=== PATIENT | male | born 1980 | race Caucasian/White ===

== ENCOUNTER 2017-04-11 20:06 | Emergency (ER) | payer MEDICAID ==
[2017-04-11] MEDS ORDERED: Sodium Chloride 0.9% 1,000 ML IV ONE (20:25)
--- NOTE | 2017-04-11 20:38 | EDM.PDOC ---
ED HPI GENERAL MEDICAL PROBLEM - General Chief Complaint: Respiratory Problem Stated Complaint: AMBULANCE Time Seen by Provider: 04/11/17 20:35 Source of Information: Reports: Patient History Limitations: Reports: No Limitations - History of Present Illness INITIAL COMMENTS - FREE TEXT/NARRATIVE: This 36 yo male patient reports to the ED by [facility] due to feeling lightheaded and like he was going to pass out. The patient reports he drank some extra energy drinks today. The patient reports no drug or ETOH use today. The patient reports he had a history of a Stroke a "couple of years ago", but does not know what the stroke effected. Onset: Today Duration: Minutes:, Constant Location: Reports: Generalized Quality: Reports: Dull Severity: Moderate Improves with: Reports: None Worsens with: Reports: None Associated Symptoms: Reports: No Other Symptoms - Related Data Allergies Allergy/AdvReac Type Severity Reaction Status Date / Time amoxicillin Allergy Cannot Verified 09/05/15 22:25 Remember aspirin Allergy Hives Verified 09/05/15 22:25 Penicillins Allergy Anaphylactic Verified 09/05/15 22:25 Shock venom-honey bee Allergy Anaphylactic Verified 09/05/15 22:25 [bee venom (honey bee)] Shock Home Meds: Home Meds Clopidogrel Bisulfate [Clopidogrel] 75 mg PO DAILY 09/06/15 [History] DULoxetine [Cymbalta] 30 mg PO ASDIRECTED 09/06/15 [History] Gabapentin [Gabapentin] 300 mg PO ASDIRECTED 09/06/15 [History] oxyCODONE HCl/Acetaminophen [oxyCODONE-Acetaminophen 5-325] 1 tab PO Q6H PRN 04/15 [History] Amitriptyline [Elavil] 1 tab PO BEDTIME 12/27/15 [History] Cyclobenzaprine [Flexeril] 1 tab PO Q8HR PRN 12/27/15 [History] Past Medical History Other Musculoskeletal History: hemiparesis of left side Neurological History: Reports: CVA Other Neuro History: hemiparesis of left side, peripheral neuropathy. jack HURTADO has had stroke in the past Psychiatric History: Reports: Addiction Social & Family History - Family History Family Medical History: Noncontributory - Tobacco Use Smoking Status *Q: Current Every Day Smoker Years of Tobacco use: 16 Packs/Tins Daily: 1 Used Tobacco, but Quit: No Second Hand Smoke Exposure: Yes - Alcohol Use Days Per Week of Alcohol Use: 1 Number of Drinks Per Day: 5 Total Drinks Per Week: 5 - Recreational Drug Use Recreational Drug Use: No ED ROS GENERAL - Review of Systems Review Of Systems: ROS reveals no pertinent complaints other than HPI. ED EXAM, GENERAL - Physical Exam Exam: See Below Exam Limited By: No Limitations General Appearance: Alert, WD/WN, Moderate Distress, Thin Eye Exam: Bilateral Eye: EOMI, Normal Inspection, PERRL Ears: Normal External Exam, Normal Canal, Hearing Grossly Normal, Normal TMs Nose: Normal Inspection, Normal Mucosa, No Blood Throat/Mouth: Normal Inspection, Normal Lips, Normal Teeth, Normal Gums, Normal Oropharynx, Normal Voice, No Airway Compromise Head: Atraumatic, Normocephalic Neck: Normal Inspection, Supple, Non-Tender, Full Range of Motion Respiratory/Chest: No Respiratory Distress, Lungs Clear, Normal Breath Sounds, No Accessory Muscle Use, Chest Non-Tender Cardiovascular: Normal Peripheral Pulses, Regular Rate, Rhythm, No Edema, No Gallop, No JVD, No Murmur, No Rub (Male) Exam: Deferred Rectal (Males) Exam: Deferred Back Exam: Normal Inspection, Full Range of Motion, NT Extremities: Normal Inspection, Normal Range of Motion, Non-Tender, Normal Capillary Refill, No Pedal Edema Neurological: Alert, Oriented, CN II-XII Intact, Normal Cognition, Normal Gait, Normal Reflexes, No Motor/Sensory Deficits Psychiatric: Anxious Skin Exam: Warm, Dry, Intact, Normal Color, No Rash Lymphatic: No Adenopathy Course - Orders/Labs/Meds Orders: Active Orders 24 hr Category Date Time Status EKG Documentation Completion [RC] STAT Care 04/11/17 20:25 Active LORazepam [Ativan] Med 04/11/17 21:28 Once 0.5 mg PO ONETIME ONE Labs: Laboratory Tests 04/11/17 04/11/17 04/11/17 Range/Units 20:15 20:15 20:25 WBC 10.2 H (5.0-10.0) 10^3/uL RBC 4.50 L (4.6-6.2) 10^6/uL Hgb 15.1 (14.0-18.0) g/dL Hct 42.7 (40.0-54.0) % MCV 94.9 (80-100) fL MCH 33.6 (27.0-34.0) pg MCHC 35.4 H (33.0-35.0) g/dL Plt Count 273 (150-450) 10^3/uL Neut % (Auto) 66.5 (42.2-75.2) % Lymph % (Auto) 22.7 (20.5-50.1) % [place] % (Auto) 8.3 H (2-8) % Eos % (Auto) 2.3 (1.0-3.0) % Baso % (Auto) 0.2 (0.0-1.0) % Sodium 141 (135-145) mmol/L Potassium 3.0 L (3.6-5.0) mmol/L Chloride 107 (101-111) mmol/L Carbon Dioxide 23.0 (21.0-31.0) mmol/L Anion Gap 14.0 BUN 9 (7-18) mg/dL Creatinine 0.9 (0.6-1.3) mg/dL Est Cr Clr Drug Dosing TNP Estimated GFR (MDRD) > 60 BUN/Creatinine Ratio 10.00 Glucose 106 H (74-105) mg/dL Calcium 9.7 (8.4-10.2) mg/dl Total Bilirubin 0.4 (0.2-1.0) mg/dL AST 22 (10-42) IU/L ALT 24 (10-60) IU/L Alkaline Phosphatase 45 (42-121) IU/L Troponin I < 0.02 (0.00-0.02) ng/ml Total Protein 7.1 (6.7-8.2) g/dl Albumin 4.4 (3.2-5.5) g/dl Globulin 2.7 Albumin/Globulin Ratio 1.63 Urine Opiates Screen Negative (NEGATIVE) Ur Oxycodone Screen Negative (NEGATIVE) Urine Methadone Screen Negative (NEGATIVE) Ur Barbiturates Screen Negative (NEGATIVE) U Tricyclic Antidepress Negative (NEGATIVE) Ur Phencyclidine Scrn Negative (NEGATIVE) Ur Amphetamine Screen Negative (NEGATIVE) U Methamphetamines Scrn Positive H (NEGATIVE) Urine MDMA Screen Negative (NEGATIVE) U Benzodiazepines Scrn Negative (NEGATIVE) Urine Cocaine Screen Negative (NEGATIVE) U Marijuana (THC) Screen Negative (NEGATIVE) Meds: Medications Discontinued Medications Generic Name Dose Route Start Last Admin Trade Name Freq PRN Reason Stop Dose Admin Sodium Chloride 1,000 mls @ 999 mls/hr 04/11/17 20:25 Normal Saline IV 04/11/17 21:25 .BOLUS ONE Departure - Departure Time of Disposition: 21:28 Disposition: Home, Self-Care 01 Condition: fair Clinical Impression: Caffeine use Nicotine dependence Qualifiers: Nicotine product type: cigarettes Substance use status: uncomplicated Qualified Code(s): F17.210 - Nicotine dependence, cigarettes, uncomplicated - Discharge Information Forms: ED Department Discharge Care Plan Goals: The patient was advised of the examination, EKG, lab and x-ray results during the visit. The patient was given a liter of IV fluids and an oral dose of Ativan. The patient was advised to avoid caffeine and nicotine use. If the patient has any additional symptoms or concerns, the patient should follow-up with his primary care facility or return to the emergency department. - My Orders Last 24 Hours: My Active Orders 04/11/17 20:25 EKG Documentation Completion [RC] STAT 04/11/17 21:28 LORazepam [Ativan] 0.5 mg PO ONETIME ONE - Assessment/Plan Last 24 Hours: My Active Orders 04/11/17 20:25 EKG Documentation Completion [RC] STAT 04/11/17 21:28 LORazepam [Ativan] 0.5 mg PO ONETIME ONE
[2017-04-11 20:44] LABS: CHLORIDE,CL 107 mmol/L (101-111); SODIUM,NA 141 mmol/L (135-145)
[2017-04-11] MEDS ORDERED: LORazepam 0.5 MG Tab PO ONE (21:28)
[2017-04-12 03:32] VITALS: BP 124/82
--- NOTE | 2017-05-03 09:10 | EKG ---
04/11/2017- TORSTEN PARKINSON - This is a standard 12-lead EKG showing normal sinus rhythm with a ventricular rate 97 beats per minute. Normal P axis, normal AL interval, QRS duration. No significant ST-T changes. [facility] /[id number]
== END 2017-04-11 21:35 | disposition home or self-care (01) ==
LOC: DL.ED 20:06
DX: F15.90 Other stimulant use, unspecified, uncomplicated (principal); F17.210 Nicotine dependence, cigarettes, uncomplicated; Z88.1 Allergy status to other antibiotic agents; Z88.0 Allergy status to penicillin; Z88.6 Allergy status to analgesic agent; Z91.030 Bee allergy status; Z79.899 Other long term (current) drug therapy; Z86.73 Personal history of transient ischemic attack (TIA), and cerebral infarction without residual deficits
CPT/HCPCS: 36415; 71010; 80053; 80305; 84484; 85025; 93005; 96365; 99284; A9270; J7030

== ENCOUNTER 2019-02-07 15:47 | Emergency (ER) | payer MEDICAID ==
[2019-02-07 15:53] VITALS: BP 139/90
[2019-02-07] MEDS ORDERED: Sodium Chloride 0.9% 10 ML Syringe FLUSH PRN (15:54)
--- NOTE | 2019-02-07 15:56 | EDM.PDOC ---
ED HPI GENERAL MEDICAL PROBLEM - General Chief Complaint: Chest Pain Stated Complaint: bad chest pain ,dizzy [id number] Time Seen by Provider: 02/07/19 15:55 Source of Information: Reports: Patient History Limitations: Reports: No Limitations - History of Present Illness INITIAL COMMENTS - FREE TEXT/NARRATIVE: Patient comes emergency department today with complaints of chest pain. He points to his xiphoid process and epigastric area when he has explaining his chest pain. Over the past 2-3 days he has had an unrelenting constant stabbing pain in his epigastric region. The pain does not radiate anywhere. He has tried Tums and Pepto-Bismol without any change. No other pain in his abdomen. No nausea no vomiting. No diarrhea. No hematochezia. No melena. No shortness of breath or difficulty breathing. No cough congestion. No trauma to his chest. No weakness dizziness lightheadedness. He does have a history of anxiety and this is provoking his anxiety as well. Epigastric Pain Score (Numeric/FACES): 7 - Related Data Allergies Allergy/AdvReac Type Severity Reaction Status Date / Time amoxicillin Allergy Cannot Verified 02/07/19 15:53 Remember aspirin Allergy Hives Verified 02/07/19 15:53 Penicillins Allergy Anaphylactic Verified 02/07/19 15:53 Shock venom-honey bee Allergy Anaphylactic Verified 02/07/19 15:53 [bee venom (honey bee)] Shock Home Meds: Home Meds . [No Known Home Meds] 02/07/19 [History] Past Medical History Cardiovascular History: Reports: High Cholesterol Other Musculoskeletal History: hemiparesis of left side Neurological History: Reports: CVA Other Neuro History: hemiparesis of left side, peripheral neuropathy. jack HURTADO has had stroke in the past Psychiatric History: Reports: Addiction Social & Family History - Family History Family Medical History: Noncontributory - Caffeine Use Caffeine Use: Reports: Coffee, Energy Drinks, Soda, Tea ED ROS GENERAL - Review of Systems Review Of Systems: ROS reveals no pertinent complaints other than HPI. ED EXAM, GENERAL - Physical Exam Exam: See Below Exam Limited By: No Limitations General Appearance: Alert Ears: Normal External Exam, Normal TMs Nose: Normal Inspection, Normal Mucosa Throat/Mouth: Normal Inspection, Normal Lips, Normal Oropharynx Head: Atraumatic, Normocephalic Neck: Normal Inspection, Supple, Non-Tender, Full Range of Motion Respiratory/Chest: No Respiratory Distress, Lungs Clear, Normal Breath Sounds, No Accessory Muscle Use, Chest Non-Tender Cardiovascular: Normal Peripheral Pulses, Regular Rate, Rhythm, No Edema GI/Abdominal: Normal Bowel Sounds, Soft, Tender (Tenderness in the epigastric region without rebound guarding. No distention. Negative Linares sign. Negative McBurney sign. Rest of the abdomen is soft nontender.) Back Exam: Normal Inspection, Full Range of Motion Extremities: Normal Inspection, Normal Range of Motion, Non-Tender, Normal Capillary Refill Neurological: Alert, Oriented, Normal Cognition, No Motor/Sensory Deficits Psychiatric: Normal Affect, Normal Mood Skin Exam: Warm, Dry, Intact, Normal Color EKG INTERPRETATION EKG Date: 02/07/19 Time: 15:51 Rhythm: NSR Rate (Beats/Min): 83 [place]: Normal P-Wave: Present QRS: Normal ST-T: Normal QT: Normal Course - Vital Signs Last Recorded V/S: Last Vital Signs Temp 36.6 C 02/07/19 15:50 Pulse 97 02/07/19 15:50 Resp 18 02/07/19 15:50 BP 139/90 02/07/19 15:50 Pulse Ox 100 02/07/19 15:50 - Orders/Labs/Meds Orders: Active Orders 24 hr Category Date Time Status EKG Documentation Completion [RC] STAT Care 02/07/19 15:54 Active Peripheral IV Care [RC] . DIRECTED Care 02/07/19 15:54 Active Sodium Chloride 0.9% [Saline Flush] Med 02/07/19 15:54 Active 10 ml FLUSH ASDIRECTED PRN Peripheral IV Insertion Adult [OM.PC] Routine Oth 02/07/19 15:54 Ordered Medication Orders Sodium Chloride (Saline Flush) 10 ml FLUSH ASDIRECTED PRN PRN Reason: Keep Vein Open Last Admin: 02/07/19 16:08 Dose: 10 ml Labs: Laboratory Tests 02/07/19 02/07/19 02/07/19 Range/Units 15:57 15:57 15:57 WBC 10.4 H (5.0-10.0) 10^3/uL RBC 4.94 (4.6-6.2) 10^6/uL Hgb 16.3 (14.0-18.0) g/dL Hct 46.2 (40.0-54.0) % MCV 93.5 (80-100) fL MCH 33.0 (27.0-34.0) pg MCHC 35.3 H (33.0-35.0) g/dL Plt Count 249 (150-450) 10^3/uL Neut % (Auto) 64.7 (42.2-75.2) % Lymph % (Auto) 25.3 (20.5-50.1) % [place] % (Auto) 6.6 (2-8) % Eos % (Auto) 3.2 H (1.0-3.0) % Baso % (Auto) 0.2 (0.0-1.0) % Sodium 136 (135-145) mmol/L Potassium 3.5 L (3.6-5.0) mmol/L Chloride 99 L (101-111) mmol/L Carbon Dioxide 25.0 (21.0-31.0) mmol/L Anion Gap 15.5 BUN 12 (7-18) mg/dL Creatinine 0.9 (0.6-1.3) mg/dL Est Cr Clr Drug Dosing 103.03 mL/min Estimated GFR (MDRD) > 60 BUN/Creatinine Ratio 13.33 Glucose 119 H (74-105) mg/dL Calcium 9.3 (8.4-10.2) mg/dl Total Bilirubin 0.9 (0.2-1.0) mg/dL AST 24 (10-42) IU/L ALT 28 (10-60) IU/L Alkaline Phosphatase 52 (42-121) IU/L Troponin I < 0.02 (0.00-0.02) ng/ml Total Protein 7.3 (6.7-8.2) g/dl Albumin 4.2 (3.2-5.5) g/dl Globulin 3.1 Albumin/Globulin Ratio 1.35 Lipase 56 H (22-51) U/L Meds: Medications Generic Name Dose Route Start Last Admin Trade Name Freq PRN Reason Stop Dose Admin Sodium Chloride 10 ml 02/07/19 15:54 02/07/19 16:08 Saline Flush FLUSH 10 ml ASDIRECTED PRN Administration Keep Vein Open Discontinued Medications Generic Name Dose Route Start Last Admin Trade Name Freq PRN Reason Stop Dose Admin Al Hydroxide/Mg Hydroxide 30 ml 02/07/19 16:12 02/07/19 16:15 Gi Cocktail PO 02/07/19 16:13 30 ml ONETIME ONE Administration Diphenhydramine HCl 25 mg 02/07/19 16:49 02/07/19 16:56 Benadryl IVPUSH 02/07/19 16:50 25 mg ONETIME ONE Administration Ketorolac Tromethamine 30 mg 02/07/19 16:49 02/07/19 16:56 Toradol IVPUSH 02/07/19 16:50 30 mg ONETIME ONE Administration - Radiology Interpretation Free Text/Narrative:: X-ray negative per radiology. - Re-Assessments/Exams Free Text/Narrative Re-Assessment/Exam: 02/07/19 16:15 GI cocktail 02/07/19 17:39 Really not much change in his symptoms of the epigastric pain. Labs unremarkable. Re-examination of his abd is now soft none tender as it was previously quite tender. I really wonder if he does not have a PUD component as he has struggle with GERD in the past. Never had any testing for H pylori or EGD in the past. We will try carafate and omeprazole and see if symptoms improve. He has an appointment with PCP on wednesday for recheck already scheduled and we will see if he has improved by then. The patient is comfortable with this plan and his questions are answered. 02/07/19 17:42 Departure - Departure Time of Disposition: 17:29 Disposition: Home, Self-Care 01 Clinical Impression: Epigastric abdominal pain of unknown etiology Instructions: Abdominal Pain, Adult, [id number], Heartburn, [id number] Forms: ED Department Discharge Additional Instructions: Start Carafate 1 tablet 4 times a day. 30 minutes prior to meals and bedtime for the next 28 days. RX given 120 tab. Omeprazole, 1 tablet daily for the next 28 days. RX given. No spicy or fatty foods. Return to the ED if new or worsening symptoms. Follow up with primary care for recheck in the next 4-6 days if not improving sooner if worse. Consider H Pylori testing or EGD if continued symptoms. - My Orders Last 24 Hours: My Active Orders 02/07/19 15:54 EKG Documentation Completion [RC] STAT Peripheral IV Care [RC] . DIRECTED Sodium Chloride 0.9% [Saline Flush] 10 ml FLUSH ASDIRECTED PRN Peripheral IV Insertion Adult [OM.PC] Routine - Assessment/Plan Last 24 Hours: My Active Orders 02/07/19 15:54 EKG Documentation Completion [RC] STAT Peripheral IV Care [RC] . DIRECTED Sodium Chloride 0.9% [Saline Flush] 10 ml FLUSH ASDIRECTED PRN Peripheral IV Insertion Adult [OM.PC] Routine Assessment:: Epigastric pain unknown etiology ? GERD vs PUD. Plan: Start Carafate 1 tablet 4 times a day. 30 minutes prior to meals and bedtime for the next 28 days. RX given 120 tab. Omeprazole, 1 tablet daily for the next 28 days. RX given. No spicy or fatty foods. Return to the ED if new or worsening symptoms. Follow up with primary care for recheck in the next 4-6 days if not improving sooner if worse. Consider H Pylori testing or EGD if continued symptoms.
[2019-02-07] MEDS ORDERED: GI Cocktail Oral Solution 30 ML PO ONE (16:12)
[2019-02-07 16:25] LABS: ANION GAP 15.5; CHLORIDE,CL 99 mmol/L (101-111); SODIUM,NA 136 mmol/L (135-145)
[2019-02-07] MEDS ORDERED: Ketorolac 30 MG/ML SDV IVPUSH ONE (16:49)
[2019-02-07] MEDS ORDERED: diphenhydrAMINE 50 MG/ML SDV IVPUSH ONE (16:49)
--- NOTE | 2019-02-07 16:54 | CR ---
Clinical history: 38-year-old male chest pain. Interpretation: Negative exam. Normal cardiac silhouette and bony thorax. (External monitor tech leads). Left-sided aortic arch. No cephalization of vascular flow, signs of alveolar edema or dependent effusion. No inflammatory bronchial "cuffing", focal lobar pneumonia, atelectasis or collapse. No lung mass or hilar lymphadenopathy. No air trapping. No pneumothorax or free subdiaphragmatic air.
== END 2019-02-07 17:42 | disposition home or self-care (01) ==
LOC: DL.ED 15:47
DX: R10.13 Epigastric pain (principal); E78.00 Pure hypercholesterolemia, unspecified; Z88.1 Allergy status to other antibiotic agents; Z88.0 Allergy status to penicillin; Z91.030 Bee allergy status
CPT/HCPCS: 36415; 71046; 80053; 83690; 84484; 85025; 93005; 96374; 96375; 99285; A9270; J1200; J1885

== ENCOUNTER 2021-05-22 15:41 | Emergency (ER) | payer MEDICARE, MEDICAID ==
[2021-05-22 15:59] VITALS: BP 119/83; PULSE 80
== END 2021-05-22 18:32 | disposition left against medical advice (07) ==
LOC: DL.ED 15:41
DX: Z53.21 Procedure and treatment not carried out due to patient leaving prior to being seen by health care provider (principal)

== ENCOUNTER 2021-05-26 03:01 | Emergency (ER) | payer MEDICARE, MEDICAID ==
[2021-05-26] MEDS ORDERED: Acetaminophen/HYDROcodone 325-5 MG Tab PO ONE ×2 (03:02→03:19)
[2021-05-26 03:20] VITALS: BP 134/80; PULSE 80
[2021-05-26] MEDS ORDERED: Clindamycin HCl 150 MG Cap PO ONE (03:23)
--- NOTE | 2021-05-26 03:25 | EDM.PDOC ---
ED HPI GENERAL MEDICAL PROBLEM - General Chief Complaint: ENT Problem Stated Complaint: SEVERE TOOTH PAIN Time Seen by Provider: 05/26/21 03:11 Source of Information: Reports: Patient, RN History Limitations: Reports: No Limitations - History of Present Illness INITIAL COMMENTS - FREE TEXT/NARRATIVE: 40 year old male who presents to the ER for dental pain. Onset: Other (about a month) Duration: Week(s): (four ), Getting Worse, Waxing/Waning Location: Reports: Other (left first lower molar) Quality: Reports: Ache, Throbbing Severity: Severe Improves with: Reports: Medication (some times) Worsens with: Reports: Other ( eatinng at times) Associated Symptoms: Reports: Other (Pain in the left lower molar which is extending to the left ear). Denies: Fever/Chills, Headaches, Nausea/Vomiting Treatments SIGNAL FITTER: Reports: Acetaminophen, Aspirin, NSAIDS, Other (see below) (orajel) Left Lower Tooth/Teeth Pain Score (Numeric/FACES): 9 - Related Data Allergies Allergy/AdvReac Type Severity Reaction Status Date / Time amoxicillin Allergy Cannot Verified 05/26/21 03:12 Remember aspirin Allergy Hives Verified 05/26/21 03:12 Penicillins Allergy Anaphylactic Verified 05/26/21 03:12 Shock venom-honey bee Allergy Anaphylactic Verified 05/26/21 03:12 [bee venom (honey bee)] Shock Home Meds: Home Meds . [No Known Home Meds] 02/07/19 [History] Past Medical History - Past Health History Medical/Surgical History: Denies Medical/Surgical History Cardiovascular History: Reports: High Cholesterol Other Musculoskeletal History: hemiparesis of left side Neurological History: Reports: CVA Other Neuro History: hemiparesis of left side, peripheral neuropathy. 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 ED EXAM, ENT - Physical Exam Exam: See Below Exam Limited By: No Limitations General Appearance: Alert, Moderate Distress Eye Exam: Bilateral Eye: PERRL Ears: Normal External Exam, Normal Canal, Hearing Grossly Normal, Normal TMs Nose: Normal Inspection Mouth/Throat: Normal Oropharynx, Other ([place] dental filllings noted with a broken left lower molar with cavities.) Head: Atraumatic Neck: Normal Inspection, Full Range of Motion Respiratory/Chest: No Respiratory Distress, Lungs Clear, Normal Breath Sounds, No Accessory Muscle Use, Chest Non-Tender Cardiovascular: Normal Peripheral Pulses, Regular Rate, Rhythm, No Edema, No Gallop, No JVD, No Murmur, No Rub GI/Abdominal: Normal Bowel Sounds, Soft, Non-Tender, No Organomegaly, No Distention, No Abnormal Bruit, No Mass Neurological: Alert, Oriented, Normal Cognition, Normal Gait Psychiatric: Anxious Skin: Warm Lymphatic: No Adenopathy Course - Vital Signs Last Recorded V/S: Last Vital Signs Temp 97.5 F 05/26/21 03:08 Pulse 80 05/26/21 03:08 Resp 18 05/26/21 03:08 BP 134/80 05/26/21 03:08 Pulse Ox 97 05/26/21 03:08 - Orders/Labs/Meds Meds: Medications Discontinued Medications Generic Name Dose Route Start Last Admin Trade Name [place] PRN Reason Stop Dose Admin Hydrocodone Bitart/Acetaminophen 1 tab 05/26/21 03:19 05/26/21 03:25 Acetaminophen/Hydrocodone 325-5 Mg Tab PO 05/26/21 03:20 1 tab ONETIME ONE Administration Hydrocodone Bitart/Acetaminophen Confirm 05/26/21 03:44 Acetaminophen/Hydrocodone 325-5 Mg Tab Administered 05/26/21 03:45 Dose 5 tab .ROUTE .STK-MED ONE Hydrocodone Bitart/Acetaminophen 1 tab 05/26/21 03:02 Acetaminophen/Hydrocodone 325-5 Mg Tab PO 05/26/21 03:03 .STK-MED ONE Clindamycin HCl 150 mg 05/26/21 03:23 05/26/21 03:28 Clindamycin Hcl 150 Mg Cap PO 05/26/21 03:24 150 mg ONETIME ONE Administration Oxycodone/Acetaminophen Confirm 05/26/21 03:41 Acetaminophen/Oxycodone 325-5 Mg Tab Administered 05/26/21 03:42 Dose 5 tab .ROUTE .STK-MED ONE - Re-Assessments/Exams Free Text/Narrative Re-Assessment/Exam: Reviewed exam findings with patient. 1 tablet of hydrocodone administered with # 5 sent home with patient. Clindamycin 150 mg administered within RX send home for 10 days. Encourage patient to take medication as prescribed. Continue Tylenol and ibuprofen as needed for pain. Follow-up with PCP and dentist. E ncourage dental hygiene. Departure - Departure Time of Disposition: 03:34 Disposition: Home, Self-Care 01 Condition: Good Clinical Impression: Dental cavities, Pain, dental - Discharge Information Referrals: PCP,None [Primary Care Provider] - Forms: ED Department Discharge Additional Instructions: Encourage patient to take medication as prescribed. Continue Tylenol and ibuprofen as needed for pain. Follow-up with PCP and dentist. Encourage dental hygiene.
[2021-05-26] MEDS ORDERED: Acetaminophen/oxyCODONE 325-5 MG Tab ONE (03:41)
[2021-05-26] MEDS ORDERED: Acetaminophen/HYDROcodone 325-5 MG Tab ONE (03:44)
== END 2021-05-26 03:55 | disposition home or self-care (01) ==
LOC: DL.ED 03:01
DX: K02.9 Dental caries, unspecified (principal); Z88.1 Allergy status to other antibiotic agents; Z88.0 Allergy status to penicillin; Z91.030 Bee allergy status; Z88.8 Allergy status to other drugs, medicaments and biological substances; Z86.73 Personal history of transient ischemic attack (TIA), and cerebral infarction without residual deficits
CPT/HCPCS: 99282; 99283; A9270-GY

== ENCOUNTER 2022-12-07 08:06 | Emergency (ER) | payer MEDICARE, MEDICAID ==
[2022-12-07 08:27] VITALS: BP 141/96; PULSE 88
[2022-12-07] MEDS ORDERED: Orphenadrine 60 MG/2 ML Inj IM ONE (08:35)
[2022-12-07] MEDS ORDERED: Ketorolac 30 MG/ML SDV IM ONE (08:36)
[2022-12-07] MEDS ORDERED: Acetaminophen/HYDROcodone 325-10 MG Tab PO ONE (08:36)
== END 2022-12-07 09:00 | disposition home or self-care (01) ==
LOC: DL.ED 08:06
DX: M54.16 Radiculopathy, lumbar region (principal); Z88.0 Allergy status to penicillin; Z91.030 Bee allergy status; Z88.6 Allergy status to analgesic agent
CPT/HCPCS: 96372; 99283; 99284; A9270; J1885; J2360